=== PATIENT | female | born 1990 | race Caucasian/White ===

== ENCOUNTER 2021-12-05 06:37 | Inpatient (IN) | payer OTHER ==
[2021-12-05] MEDS ORDERED: CITRIC ACID/SODIUM CITRATE 30 ML UNIT-DOSE CUP PO ONE (07:34)
[2021-12-05] MEDS ORDERED: ELECTROLYTE-148 SOLN 500 ML IV ONE (07:34)
[2021-12-05 07:43] VITALS: BMI 26.5
[2021-12-05] MEDS ORDERED: OXYTOCIN 20 UNITS in 0.9% NS 40 UNIT/2,000 ML INFUS.BAG IV ONE (07:44)
[2021-12-05] MEDS ORDERED: PHENYLEPHRINE HCL 10 MG/1 ML SINGLE DOSE VIAL ONE (07:50)
[2021-12-05] MEDS ORDERED: ONDANSETRON 4 MG/2 ML VIAL ONE (07:50)
[2021-12-05] MEDS ORDERED: morphine SULFATE/PF 1 MG/2 ML (2cc Syringe - QUVA) ONE (07:50)
[2021-12-05] MEDS ORDERED: DEXAMETHASONE SOD PHOSPHATE 4 MG/1 ML VIAL ONE (07:50)
[2021-12-05] MEDS ORDERED: ceFAZolin SODIUM 1 GM VIAL ONE (07:50)
[2021-12-05] MEDS ORDERED: KETOROLAC TROMETHAMINE 30 MG/1 ML VIAL ONE (08:54)
[2021-12-05 09:41] LABS: CORD BASE EXCESS -5.2 mmol/L (0-2); CORD HCO3 21.7 mmHg (20-29); CORD PCO2 47.5 mmHg (30-78); CORD pH 7.278 (7.14-7.44)
[2021-12-05 09:44] LABS: CORD HCO3 22.4 mmHg (20-29); CORD PCO2 54.9 mmHg (30-78); CORD pH 7.228 (7.14-7.44)
[2021-12-05] MEDS ORDERED: ONDANSETRON 4 MG/2 ML VIAL IVPUSH PRN (09:59)
[2021-12-05] MEDS: OXYTOCIN 20 UNITS in 0.9% NS 20 UNIT/1,000 ML INFUS.BAG IV SCH (13:09)
[2021-12-06] MEDS: ACETAMINOPHEN 1000 MG/100 ML BAG IVPB PRN ×2 (00:04→06:19)
[2021-12-06 09:29] LABS: BASO % 0.2 % (0-2.0); EOS % 0.3 % (0-4.5); HEMATOCRIT 27.5 % (32.4-45.2); HEMOGLOBIN 9.3 GM/dL (10.7-15.3); LYMPH % 22.7 % (8-40); MCH 28.4 pg (25.7-33.7); MEAN CELL VOLUME 83.5 fl (80-96); MEAN PLT VOLUME 9.3 fl (7.5-11.1); MONO % 5.3 % (3.8-10.2); NEUT % 71.5 % (42.8-82.8); PLATELET COUNT 132 10^3/uL (134-434); RBC 3.29 M/mm3 (3.60-5.2); RDW 20.9 % (11.6-15.6); WHITE BLOOD COUNT 10.3 K/mm3 (4.0-10.0)
[2021-12-06] MEDS ORDERED: DIPHTH,PERTUSS(ACELL),TET 0.5 ML DISP.SYRIN IM ONE (10:00)
[2021-12-06 10:49] LABS: ANISOCYTOSIS 1+; MACROCYTOSIS 0
[2021-12-06] MEDS: SIMETHICONE 80 MG TAB.CHEW (FP) PO PRN ×2 (13:17→21:22)
[2021-12-06] MEDS: IBUPROFEN 600 MG TABLET (FP) PO PRN (13:17)
[2021-12-06] MEDS: DEXTROSE 5%-LACTATED RINGERS 1,000 ML IV SCH (21:17)
[2021-12-06] MEDS: OXYTOCIN 20 UNITS in 0.9% NS 20 UNIT/1,000 ML INFUS.BAG IV SCH (21:18)
[2021-12-06] MEDS: FERROUS SO4 325 MG TABLET (FP) PO SCH (21:22)
[2021-12-06] MEDS: oxyCODONE HCL 5 MG TABLET PO PRN (21:24)
[2021-12-07] MEDS: SIMETHICONE 80 MG TAB.CHEW (FP) PO PRN ×3 (01:33→20:47)
[2021-12-07] MEDS: IBUPROFEN 600 MG TABLET (FP) PO PRN ×3 (01:33→20:47)
[2021-12-07] MEDS: FERROUS SO4 325 MG TABLET (FP) PO SCH ×2 (10:25→22:03)
[2021-12-07] MEDS: oxyCODONE HCL 5 MG TABLET PO PRN (18:36)
[2021-12-07 21:04] VITALS: BP 101/64; PULSE 76; TEMP 98.2
[2021-12-08] MEDS: SIMETHICONE 80 MG TAB.CHEW (FP) PO PRN ×2 (00:37→09:21)
[2021-12-08] MEDS: IBUPROFEN 600 MG TABLET (FP) PO PRN ×2 (00:37→09:21)
[2021-12-08 08:12] LABS: BASO % 0.2 % (0-2.0); EOS % 0.9 % (0-4.5); HEMATOCRIT 28.1 % (32.4-45.2); HEMOGLOBIN 9.3 GM/dL (10.7-15.3); LYMPH % 20.6 % (8-40); MCHC 32.9 g/dl (32.0-36.0); MEAN CELL VOLUME 85.2 fl (80-96); MEAN PLT VOLUME 9.3 fl (7.5-11.1); MONO % 4.3 % (3.8-10.2); PLATELET COUNT 154 10^3/uL (134-434); RDW 20.8 % (11.6-15.6); WHITE BLOOD COUNT 14.8 K/mm3 (4.0-10.0)
[2021-12-08] MEDS: FERROUS SO4 325 MG TABLET (FP) PO SCH (09:21)
== END 2021-12-08 13:30 | disposition home or self-care (01) | DRG 540 ==
LOC: JLDR 06:37 → EDUNIT# 08:00 → J3W 11:30
PROVIDERS: ADMIT Obstetrics & Gynecology Maternal & Fetal Medicine; ATTEND Obstetrics & Gynecology Maternal & Fetal Medicine
PROC: 10D00Z1 Extraction of Products of Conception, Low, Open Approach (ICD-10-PCS; principal; 2021-12-05)
PROC: 0DNW0ZZ Release Peritoneum, Open Approach (ICD-10-PCS; 2021-12-05)
DX: O34.211 Maternal care for low transverse scar from previous cesarean delivery (principal); N73.6 Female pelvic peritoneal adhesions (postinfective); O90.81 Anemia of the puerperium; D64.9 Anemia, unspecified
CPT/HCPCS: 36415; 36600; 82803; 85025; 88307-TC

== ENCOUNTER 2025-04-11 22:19 | Emergency (ER) | payer OTHER ==
[2025-04-11 22:35] VITALS: BP 116/76; RESP 18; TEMP 97.9; BMI 24.7
[2025-04-11] MEDS ORDERED: IBUPROFEN 400 MG TABLET (FP) PO ONE (23:32)
[2025-04-11] MEDS: IBUPROFEN 400 MG TABLET (FP) PO ONE (23:35)
[2025-04-11 23:51] VITALS: PULSE 84
== END 2025-04-12 00:05 | disposition home or self-care (01) ==
LOC: JER 22:19
DX: R07.2 Precordial pain (principal); R00.0 Tachycardia, unspecified
CPT/HCPCS: 93005; 93010; 93308; 99284-25